=== PATIENT | female | born 1970 | race Caucasian/White ===

== ENCOUNTER → 2019-01-18 | Day surgery (SDC) | payer OTHER ==
[2019-01-13 14:32] LABS: BASOPHILS # (AUTO) 0.1 (0.0-0.1); BASOPHILS % 0.6 % (0.0-1.0); EOSINOPHILS # (AUTO) 0.3 (0.0-0.4); EOSINOPHILS % 1.6 % (0.0-6.0); HEMATOCRIT 47.4 % (34.2-44.1); LYMPHOCYTES # (AUTO) 3.3 (1.0-3.2); LYMPHOCYTES % 21.5 % (18.0-39.1); MEAN CORPUSCULAR HEMOGLOBIN 29.5 pg (28-32); MEAN CORPUSCULAR HGB CONC 33.8 g/dL (31-35); MEAN CORPUSCULAR VOLUME 87.5 fL (81-99); MONOCYTES # (AUTO) 0.8 (0.2-0.8); MONOCYTES % 5.1 % (4.4-11.3); NEUTROPHILS # (AUTO) 10.7 (2.1-6.9); NEUTROPHILS % 70.7 % (38.7-80.0); PLATELET COUNT 264 x10e3/uL (140-360); RED BLOOD COUNT 5.42 x10e6/uL (3.6-5.1); RED CELL DISTRIBUTION WIDTH 13.3 % (11.7-14.4)
[2019-01-13 14:51] LABS: ALBUMIN 3.8 g/dL (3.5-5.0); ANION GAP 17.2 mmol/L (8-16); CALCIUM 10.6 mg/dL (8.4-10.2); CREATININE, SERUM 0.99 mg/dL (0.57-1.11); POTASSIUM 4.2 mmol/L (3.5-5.1)
--- NOTE | 2019-01-13 15:55 | NUR ---
Notified Dr. Sharee Costa of glucose [address] Sharee Costa stated to do finger stick on day of procedure.
[~2019-01-18] VITALS: Ht 165.1 cm; Wt 96.6 kg
[~2019-01-18] MED LIST: ASPIR 8181 MG PO; FENTANYL CITRATE/PF 100MCG/2 ML INJ ONE; HEPARIN SOD (PORCINE) 1000 UNIT/ML 30ML ONE; HEPARIN SOD/SOD CHLORIDE 2,000 ML ONE; IOPAMIDOL 370 MG/ML 200 ML INFUS..BTL INJ ONE; LIDOCAINE HCL 2% LOCAL 20 ML VIAL ONE; LISINOPRIL10 MG PO; MIDAZOLAM HCL 2 MG/2 ML VIAL ONE; NITROGLYCERIN/D5W 200 MCG/ML 250 ML ONE; SODIUM CHLORIDE 0.9% 1000ML 1,000 ML ONE; VERAPAMIL HCL 2.5 MG/ML 2 ML VIAL ONE
--- OUTSIDE RECORDS SUMMARY | 2019-01-18 11:05 | XMS REPORT | Summary of Care ---
Author Author [facility] Address Unknown Phone Unavailable Encounter HQ Encntr_alias(FIN) [id number] Date(s): 10/01/17 - 10/01/17 Urgent [facility] [address] [place] [address] [phone] Discharge Disposition: Home or Self Care Attending Physician: Ayanna Medrano MD Vital Signs No data available for this section Problem List No data available for this section Allergies, Adverse Reactions, Alerts Substance Reaction Severity Status sulfa drugs Active Medications No data available for this section Results No data available for this section Immunizations No data available for this section Procedures No data available for this section Social History Social History Type Response Assessment and Plan No data available for this section
--- OUTSIDE RECORDS SUMMARY | 2019-01-18 11:05 | XMS REPORT ---
Author Author [facility] Address Unknown Phone Unavailable Care Team Providers Care Orthopedic Cast Specialist Name Role Phone Unavailable Unavailable Payers Payer Name Policy Type Policy Number Effective Date Expiration Date Problems This patient has no known problems. Allergies, Adverse Reactions, Alerts Allergy Name Allergy Type Status Severity Reaction(s) Onset Date Inactive Date Treating Clinician Comments Sulfa (Sulfonamide Antibiotics) DA Active SD 2018-11-08 00:00:00 ciprofloxacin DA Active 2018-11-08 00:00:00 Sulfa (Sulfonamide Antibiotics) DA Active SD 2018-02-07 00:00:00 ciprofloxacin DA Active 2018-02-07 00:00:00 Medications This patient has no known medications. Results Test Description Test Time Test Comments Text Results Atomic Results Result Comments - CT ANGIO CHEST 2018-11-17 16:46:00 Name: PASHA MCKEON [facility] : 1970 Age/S: 48 / F [address] [place] [address] Blvd Unit #: [id number] Loc: [place] [address] Phys: Víctor Cortés MD Acct: [id number] Dis Date: Status: REG ER PHONE #: [phone] Exam Date: 11/17/2018 1624 FAX #: [phone] Reason: CHEST PAIN RADIATING TO BACK; EVAL FOR PE/AORTA EXAMS: CPT CODE: [id number] CT ANGIO CHEST [address] ANGIOGRAM WITH IV CONTRAST (PE PROTOCOL) AND 3D RECONSTRUCTIONS 11/17/2018 AT 1622 HOURS. MEDICAL HISTORY: Chest pain radiating to the back. Pulmonary embolism? Aortic dissection?. COMPARISON STUDIES: Chest one view from earlier the same day at 1237 hours.. ADMINISTERED CONTRAST: 100 mL of Isovue-300 intravenously. DLP: 389.83 mGy-cm FINDINGS: Contiguous 2.5 mm axial images of the chest were obtained with IV contrast using the CT angiogram protocol for pulmonary embolism. Images were obtained from the thoracic inlet to the level of the adrenal glands. The acquired data was postprocessed to create coronal reformatted images and 3D volume rendering and MIP reconstructions with the use of the workstation. No central or segmental pulmonary emboli are demonstrated and there are no s igns of thoracic aortic aneurysm or dissection. There are no signs of intracardiac thrombus, ventricular hypertrophy or aneurysm. No pericardial thickening or effusion. No adenopathy. Mild centrilobular and subpleural emphysema with no edema or consolidation accounting for limited inspiration. No pleural effusion or pneumothorax. No acute upper abdominal findings are seen along the visualized segments. Prior vertical sleeve gastroplasty and cholecystectomy without biliary dilatation. Incidental 1.8 cm hypodense left adrenal nodule (mean attenuation: 13 HU). Severe thoracic spondylosis without destructive bone lesion. IMPRESSION: 1. No central or segmental pulmonary emboli, thoracic aortic aneurysm or dissection. 2. Mild emphysema with no edema or consolidation accounting for limited inspiration. 3. No acute upper abdominal findings. 4. Cholecystectomy and vertical sleeve gastrop lasty. 5. Hypodense left adrenal nodule. Suspect adenoma. ____ CT imaging performed at this location utilizes radiation dose optimization techniques which include one or more of the following: - Automated exposure control -Adjustment of the mA and/or kV according to patient size PAGE 1 Signed Report (CONTINUED) Name: PASHA MCKEON [facility] : 1970 Age/S: 48 / F [address] [place] [address] Unit #: [id number] Loc: [place] [address] Phys: Víctor Cortés MD Acct: [id number] Dis Date: Status: REG ER PHONE #: [phone] Exam Date: 11/17/2018 1624 FAX #: [phone] Reason: CHEST PAIN RADIATING TO BACK; EVAL FOR PE/AORTA EXAMS: CPT CODE: [id number] CT ANGIO CHEST [address] <Continued> -Use of iterative reconstruction technique SL: ER-H at 1646 Reported and signed by: Rigo Burgess M.D. CC: Astrid Macedo MD; Víctor Cortés MD Technologist:Alia Ott RT(R)(CT) CTDI: DLP: Trnscb Date/Time: 11/17/2018 (164) [email or web address] Orig Print D/T: S: 11/17/2018 (3635) PAGE 2 Signed Report B-TYPE NATRIURETIC PEPTIDE 2018-11-17 14:47:00 B-TYPE NATRIURETIC PEPTIDE (test code=BNP) 5.5 PG/ML 0-100 URINALYSIS [id number] 14:07:00* Test Item Value Reference Range Comments UA COLOR (test code=COLU) STRAW YEL/STRAW UA APPEARANCE (test code=APPU) CLEAR CLEAR UA GLUCOSE DIPSTICK (test code=DGLUU) 3+ NEGATIVE UA BILIRUBIN DIPSTICK (test code=BILU) NEGATIVE NEGATIVE UA KETONE DIPSTICK (test code=KETU) NEGATIVE NEGATIVE UA SPECIFIC GRAVITY (test code=SGU) 1.031 1.005-1.030 UA BLOOD DIPSTICK (test code=MAY) NEGATIVE NEGATIVE UA PH DIPSTICK (test code=LIA) 6.0 5.0-7.0 UA PROTEIN DIPSTICK (test code=PROU) NEGATIVE NEGATIVE UA UROBILINIOGEN DIPSTICK (test code=URO) 0.2 mg/dL 0.2-1.0 UA NITRITE DIPSTICK (test code=WENDY) NEGATIVE NEGATIVE UA LEUKOCYTE ESTERASE DIPSTICK (test code=LEUU) NEGATIVE NEGATIVE UA WBC (test code=WBCU) 0-3 WBC/HPF 0-3 UA RBC (test code=RBCU) 0-3 RBC/HPF 0-3 UA BACTERIA (test code=BACU) NONE SEEN /HPF NONE SEEN UA SQUAMOUS CELLS (test code=SQU) 0-5 /HPF NONE SEEN UA MUCUS (test code=MUCU) TRACE /LPF NONE SEEN BASIC METABOLIC [id number] 14:06:00* Test Item Value Reference Range Comments SODIUM (test code=NA) 135 mEq/L 134-147 POTASSIUM (test code=K) 3.9 mEq/L 3.4-5.0 CHLORIDE (test code=CL) 102 mEq/L 100-108 CARBON DIOXIDE (test code=CO2) 27 mEq/L 21-33 ANION GAP (test code=GAP) 10 0-20 GLUCOSE (test code=GLU) 447 mg/dL 70-110 BLOOD UREA NITROGEN (test code=BUN) 7 mg/dL 7-18 GLOMERULAR FILTRATION RATE (test code=GFR) 88.9 95-105 Units of measure=ml/min/1.73 m2 CREATININE (test code=CREAT) 0.7 mg/dL 0.6-1.3 CALCIUM (test code=CA) 8.6 mg/dL 8.0-10.5 HEPATIC FUNCTION [id number] 14:06:00* Test Item Value Reference Range Comments TOTAL PROTEIN (test code=PROT) 7.1 g/dL 6.4-8.2 ALBUMIN (test code=ALB) 3.30 g/dL 3.4-5.0 BILIRUBIN TOTAL (test code=BILT) 0.40 mg/dL 0.0-1.0 BILIRUBIN DIRECT (test code=BILD) 0.10 MG/DL 0.0-0.30 BILIRUBIN INDIRECT (test code=BILIND) 0.30 MG/DL SGOT/AST (test code=AST) 25 IUnit/L 15-37 SGPT/ALT (test code=ALT) 37 IUnit/L 15-65 ALKALINE PHOSPHATASE TOTAL (test code=ALKP) 150 IUnit/L 20-125 [id number] 14:06:00* Test Item Value Reference Range Comments LIPASE (test code=LIP) 246 IUnit/L 73-393 [id number] 14:06:00* Test Item Value Reference Range Comments MAGNESIUM (test code=MAG) 1.80 mg/dL 1.8-2.4 [id number] 14:06:00* Test Item Value Reference Range Comments TROPONIN-I (test code=TROPI) < 0.015 ng/mL 0.000-0.045 Negative: <=0.045 Positive: >=0.046 Correlation with serial results, other cardiac markers andclinical findings is necessary to determine the clinicalsignificance of this result. Results using different methodologies should not be comparedto one another as quantitative results may vary by method. [id number] 13:58:00* Test Item Value Reference Range Comments D-DIMER (test code=DDIMER) < 215 ng/mlFEU <=500 THROMBOSIS AND/OR PULMONARY EMBOLISM AND THE CLINICAL CUT- OFF VALUE FOR EXCLUSION (500 ng/mL FEU) OF THESE CONDITIONSIS VALIDATED BY THE PEANUT GRADER OF THE METHOD. A NEGATIVE D-DIMER RESULT WHEN COMBINED WITH A CLINICALASSESSMENT OF LOW PRETEST PROBABILITY HAS BEEN SHOWN TO HAVEA HIGH NEGATIVE PREDICTIVE VALUE OF DVT OR PE. D-DIMER VALUES >500 ng/mL FEU ARE NOT DIAGNOSTIC FOR DVT, PEor DIC WITHOUT OTHER CONFIRMATORY TESTS AND APPROPRIATECLINICAL EUALUATIONS. CBC W/AUTO [id number] 13:48:00* Test Item Value Reference Range Comments WHITE BLOOD CELL (test code=WBC) 10.06 x10 3/uL 4.5-11.0 RED BLOOD CELL (test code=RBC) 4.85 x10 6/uL 3.54-5.02 HEMOGLOBIN (test code=HGB) 14.4 g/dL 11.0-15.0 HEMATOCRIT (test code=HCT) 42.9 % 33.0-45.0 MEAN CELL VOLUME (test code=MCV) 88.5 fL 81.0-99.0 MEAN CELL HGB (test code=MCH) 29.7 pg 27.0-33.0 MEAN CELL HGB CONCETRATION (test code=MCHC) 33.6 g/dL 33.0-37.0 RED CELL DISTRIBUTION WIDTH CV (test code=RDW) 13.9 % 11.5-14.5 RED CELL DISTRIBUTION WIDTH SD (test code=RDW-SD) 44.8 fL 37.0-54.0 PLATELET COUNT (test code=PLT) 212 x10 3/uL 150-400 MEAN PLATELET VOLUME (test code=MPV) 11.1 fL 7.0-9.0 NEUTROPHIL % (test code=NT%) 64.0 % 56.0-77.0 IMMATURE GRANULOCYTE % (test code=IG%) 0.4 % 0.0-2.0 LYMPHOCYTE % (test code=LY%) 28.3 % 14.0-32.0 MONOCYTE % (test code=MO%) 5.0 % 4.8-9.0 EOSINOPHIL % (test code=EO%) 1.9 % 0.3-3.7 BASOPHIL % (test code=BA%) 0.4 % 0.0-2.0 NUCLEATED RBC % (test code=NRBC%) 0.0 % 0-0 NEUTROPHIL # (test code=NT#) 6.44 x10 3/uL 2.0-7.6 IMMATURE GRANULOCYTE # (test code=IG#) 0.04 x10 3/uL 0.00-0.03 LYMPHOCYTE # (test code=LY#) 2.85 x10 3/uL 1.0-3.8 MONOCYTE # (test code=MO#) 0.50 x10 3/uL 0.1-0.8 EOSINOPHIL # (test code=EO#) 0.19 x10 3/uL 0.0-0.2 BASOPHIL # (test code=BA#) 0.04 x10 3/uL 0.0-0.2 NUCLEATED RBC # (test code=NRBC#) 0.00 x10 3/uL 0.0-0.1 MANUAL DIFF REQUIRED (test code=MDIFF) NO - XR CHEST 1 [id number] 12:46:00 FAX: Astrid Mann [phone] [place]: St: REG FAX: Víctor Cortés MD [phone] Name: PASHA MCKEON [facility] : 1970 Age/S: 48/F [address] [place] [address] Unit #: [id number] Loc: [place] [address] Phys: Víctor Cortés MD Acct: [id number] Dis Date: Status: REG ER PHONE #: [phone] Exam Date: 11/17/2018 1244 FAX #: [phone] Reason: Chest Pain EXAMS: CPT CODE: [id number] XR CHEST 1 V 71285 CHEST, ONE VIEW: HISTORY: Acute chest pain. COMPARISON EXAM(S): Back to January 2015 FINDINGS: This single portable view was obtained at 1237 hours on 11/17/2018 and shows the cardiac silhouette to be upper normal and the lungs clear. No pleural fluid or evidence of pneumothorax. The skeletal structures are unremarkable. IMPRESSION: 1. No acute changes. 2. Stable appearance of the chest compared to 11/08/2018. SL:01 at 8336 Reported and signed by: Bj Bhatti M.D. CC: Astrid Macedo MD; Víctor Cortés MD Technologist: RT Ute(R) Trnscrd Date/Time/By: 11/17/2018 (4555) : By: [email or web address] Orig Print D/T: S: 11/17/2018 (9670) PAGE 1 Signed Report [id number] 06:49:00* Test Item Value Reference Range Comments GLUBED (test code=GLUBED) 351 MG/DL 70-110 Performed by certified automatic fancy machine operator at [facility] ACETONE [id number] 06:05:00* Test Item Value Reference Range Comments ACETONE QUANT (test code=ACETN) NEGATIVE - <20mg/dL mg/dL NEG - <20 DRUGS OF ABUSE SCREEN [id number] 05:05:00* Test Item Value Reference Range Comments URN COCAINE (test code=COCAURN) NEGATIVE NEGATIVE URN CANNABINOIDS (test code=CANNABURN) NEGATIVE NEGATIVE URN AMPHETAMINE (test code=AMPHETURN) NEGATIVE NEGATIVE URN BARBITURATE (test code=BARBITURN) NEGATIVE NEGATIVE URN BENZODIAZEPINE (test code=BENZOURN) NEGATIVE NEGATIVE Cut-off value:200 ng/mL URN OPIATES (test code=OPIATURN) NEGATIVE NEGATIVE Cut-off value:2000 ng/mL URN PHENCYCLIDINE (PCP) (test code=PHENCURN) NEGATIVE NEGATIVE Cutoffs:Barbiturates 200 ng/mLBenzodiazepines 200 ng/mLTHC Cannabinoids 50 ng/mLOpiates(Morphine) 2000 ng/mLAmphetamine 1000 ng/mLCocaine 300 ng/mLPCP phencyclidine 25 ng/mL Unconfirmed screening results shouldnot be used for non-medical purposes. B-TYPE NATRIURETIC [id number] 04:46:00* Test Item Value Reference Range Comments B-TYPE NATRIURETIC PEPTIDE (test code=BNP) 9.3 PG/ML 0-100 - XR CHEST 1 [id number] 04:41:00 FAX: Astrid Mann [phone] [place]: St: REG FAX: Vita Ring NP [phone] Name: PASHA MCKEON [facility] : 1970 Age/S: 48/F [address] [place] [address] Unit #: [id number] Loc: [place] [address] Phys: Vita Ring NP Acct: [id number] Dis Date: Status: REG ER PHONE #: [phone] Exam Date: 11/08/2018 0426 FAX #: [phone] Reason: Chest Pain EXAMS: CPT CODE: [id number] XR CHEST 1 V 54463 EXAM: CR, XR chest one view: 11/08/2018, 0418 hours HISTORY: Chest Pain TECHNIQUE: 1 view of the chest. COMPARISON: 11/25/2017 FINDINGS: Trachea is midline. Heart is normal in size. Pulmonary vascularity is unremarkable. There is no airspace consolidation, pleural effusion or pneumothorax. A small nodular opacity in the left lower lobe, probably calcified granuloma. Mild subsegmental atelectasis left lung base Osseous structures are stable. IMPRESSION: Mild subsegmental atelectasis left lung base. SL: [JSYED-H] at 0441 Reported and signed by: Chris Kirkland M.D. CC: Astrid Macedo MD; Vita Ring NP Technologist: RT Crissy(R) Trnscrd Date/Time/By: 11/08/2018 (044) : By: [email or web address] Orig Print D/T: S: 11/08/2018 (0444) PAGE 1 Signed Report PROTHROMBIN [id number] 04:40:00* Test Item Value Reference Range Comments PROTHROMBIN TIME PATIENT (test code=PTP) 9.6 SECONDS 9.3-12.9 INTERNATIONAL NORMAL RATIO (test code=INR) 0.9 0.8-1.2 TARGET INR BY INDICATION Indication INR1. Prophylaxis of venous thrombosis 2.0 - 3.0 (orthopedic surgery), Prophylaxis of venous thrombosis (other than high-risk surgery), Treatment of Deep Vein Thrombosis/Pulmonary Embolism, Prevention of systemic embolism - Tissue heart valves, Acute Myocardial Infarction (to prevent systemic embolism), Valvular heart disease, Atrial Fibrillation, Bileaflet mechanical valve in aortic position.2. Mechanical prosthetic valves (high risk), 2.5 - 3.5 Presence of Lupus Anticoagulant or Antiphospholipid Antibodies, Prevention of systemic embolism - Acute Myocardial Infarction (to prevent recurrent infarct). THROMBOPLASTIN TIME [id number] 04:40:00* Test Item Value Reference Range Comments THROMBOPLASTIN TIME PARTIAL (test code=PTT) 29.5 Seconds 25.0-39.5 Therapeutic Range: 50.4 - 88.3 Seconds Effective 10/18/2018 [id number] 04:40:00* Test Item Value Reference Range Comments D-DIMER (test code=DDIMER) 331 ng/mlFEU <=500 THROMBOSIS AND/OR PULMONARY EMBOLISM AND THE CLINICAL CUT- OFF VALUE FOR EXCLUSION (500 ng/mL FEU) OF THESE CONDITIONSIS VALIDATED BY THE PEANUT GRADER OF THE METHOD. A NEGATIVE D-DIMER RESULT WHEN COMBINED WITH A CLINICALASSESSMENT OF LOW PRETEST PROBABILITY HAS BEEN SHOWN TO HAVEA HIGH NEGATIVE PREDICTIVE VALUE OF DVT OR PE. D-DIMER VALUES >500 ng/mL FEU ARE NOT DIAGNOSTIC FOR DVT, PEor DIC WITHOUT OTHER CONFIRMATORY TESTS AND APPROPRIATECLINICAL EUALUATIONS. BASIC METABOLIC [id number] 04:38:00* Test Item Value Reference Range Comments SODIUM (test code=NA) 132 mEq/L 134-147 POTASSIUM (test code=K) 4.1 mEq/L 3.4-5.0 CHLORIDE (test code=CL) 100 mEq/L 100-108 CARBON DIOXIDE (test code=CO2) 23 mEq/L 21-33 ANION GAP (test code=GAP) 13 0-20 GLUCOSE (test code=GLU) 568 mg/dL 70-110 BLOOD UREA NITROGEN (test code=BUN) 11 mg/dL 7-18 GLOMERULAR FILTRATION RATE (test code=GFR) 88.9 95-105 Units of measure=ml/min/1.73 m2 CREATININE (test code=CREAT) 0.7 mg/dL 0.6-1.3 CALCIUM (test code=CA) 8.7 mg/dL 8.0-10.5 HEPATIC FUNCTION [id number] 04:38:00* Test Item Value Reference Range Comments TOTAL PROTEIN (test code=PROT) 6.9 g/dL 6.4-8.2 ALBUMIN (test code=ALB) 3.10 g/dL 3.4-5.0 BILIRUBIN TOTAL (test code=BILT) 0.40 mg/dL 0.0-1.0 BILIRUBIN DIRECT (test code=BILD) < 0.10 MG/DL 0.0-0.30 BILIRUBIN INDIRECT (test code=BILIND) 0.30 MG/DL SGOT/AST (test code=AST) 36 IUnit/L 15-37 SGPT/ALT (test code=ALT) 49 IUnit/L 15-65 ALKALINE PHOSPHATASE TOTAL (test code=ALKP) 168 IUnit/L 20-125 [id number] 04:38:00* Test Item Value Reference Range Comments LIPASE (test code=LIP) 283 IUnit/L 73-393 BASIC METABOLIC [id number] 04:33:00* Test Item Value Reference Range Comments SODIUM (test code=NA) 132 mEq/L 134-147 POTASSIUM (test code=K) 4.1 mEq/L 3.4-5.0 CHLORIDE (test code=CL) 100 mEq/L 100-108 CARBON DIOXIDE (test code=CO2) 23 mEq/L 21-33 ANION GAP (test code=GAP) 13 0-20 GLUCOSE (test code=GLU) mg/dL 70-110 BLOOD UREA NITROGEN (test code=BUN) 11 mg/dL 7-18 GLOMERULAR FILTRATION RATE (test code=GFR) 88.9 95-105 Units of measure=ml/min/1.73 m2 CREATININE (test code=CREAT) 0.7 mg/dL 0.6-1.3 CALCIUM (test code=CA) 8.7 mg/dL 8.0-10.5 HEPATIC FUNCTION [id number] 04:33:00* Test Item Value Reference Range Comments TOTAL PROTEIN (test code=PROT) 6.9 g/dL 6.4-8.2 ALBUMIN (test code=ALB) 3.10 g/dL 3.4-5.0 BILIRUBIN TOTAL (test code=BILT) 0.40 mg/dL 0.0-1.0 BILIRUBIN DIRECT (test code=BILD) < 0.10 MG/DL 0.0-0.30 BILIRUBIN INDIRECT (test code=BILIND) 0.30 MG/DL SGOT/AST (test code=AST) 36 IUnit/L 15-37 SGPT/ALT (test code=ALT) 49 IUnit/L 15-65 ALKALINE PHOSPHATASE TOTAL (test code=ALKP) 168 IUnit/L 20-125 [id number] 04:33:00* Test Item Value Reference Range Comments LIPASE (test code=LIP) 283 IUnit/L 73-393 TROPONIN-I [id number] 04:24:00* Test Item Value Reference Range Comments TROPONIN-I RAPID (test code=TROPIRAP) 0.00 ng/mL 0.00-0.08 Performed by certified automatic fancy machine operator at [facility] Negative: <=0.08 Positive: >=0.09An elevated troponin value alone is not sufficient todiagnose a myocardial infarction. Rather, the patient sclinical presentation (history, physical exam) and ECGshould be used in conjunction with troponin in thediagnostic evaluation of suspected myocardial infarction. Aserial sampling protocol is recommended to facilitate the identification of temporal changes in troponin levels characteristic of SD. CBC W/AUTO [id number] 04:17:00* Test Item Value Reference Range Comments WHITE BLOOD CELL (test code=WBC) 12.48 x10 3/uL 4.5-11.0 RED BLOOD CELL (test code=RBC) 4.75 x10 6/uL 3.54-5.02 HEMOGLOBIN (test code=HGB) 14.1 g/dL 11.0-15.0 HEMATOCRIT (test code=HCT) 41.7 % 33.0-45.0 MEAN CELL VOLUME (test code=MCV) 87.8 fL 81.0-99.0 MEAN CELL HGB (test code=MCH) 29.7 pg 27.0-33.0 MEAN CELL HGB CONCETRATION (test code=MCHC) 33.8 g/dL 33.0-37.0 RED CELL DISTRIBUTION WIDTH CV (test code=RDW) 13.8 % 11.5-14.5 RED CELL DISTRIBUTION WIDTH SD (test code=RDW-SD) 44.5 fL 37.0-54.0 PLATELET COUNT (test code=PLT) 222 x10 3/uL 150-400 MEAN PLATELET VOLUME (test code=MPV) 11.5 fL 7.0-9.0 NEUTROPHIL % (test code=NT%) 59.9 % 56.0-77.0 IMMATURE GRANULOCYTE % (test code=IG%) 0.5 % 0.0-2.0 LYMPHOCYTE % (test code=LY%) 31.7 % 14.0-32.0 MONOCYTE % (test code=MO%) 5.8 % 4.8-9.0 EOSINOPHIL % (test code=EO%) 1.5 % 0.3-3.7 BASOPHIL % (test code=BA%) 0.6 % 0.0-2.0 NUCLEATED RBC % (test code=NRBC%) 0.0 % 0-0 NEUTROPHIL # (test code=NT#) 7.47 x10 3/uL 2.0-7.6 IMMATURE GRANULOCYTE # (test code=IG#) 0.06 x10 3/uL 0.00-0.03 LYMPHOCYTE # (test code=LY#) 3.96 x10 3/uL 1.0-3.8 MONOCYTE # (test code=MO#) 0.73 x10 3/uL 0.1-0.8 EOSINOPHIL # (test code=EO#) 0.19 x10 3/uL 0.0-0.2 BASOPHIL # (test code=BA#) 0.07 x10 3/uL 0.0-0.2 NUCLEATED RBC # (test code=NRBC#) 0.00 x10 3/uL 0.0-0.1 MANUAL DIFF REQUIRED (test code=MDIFF) NO
--- OUTSIDE RECORDS SUMMARY | 2019-01-18 11:05 | XMS REPORT | Continuity of Care Document ---
Author Author [facility] Address Unknown Phone Unavailable Care Team Providers Care Restoration Officer Name Role Phone Gyft Unavailable Unavailable Problems No Data Provided for This Section Medications No Data Provided for This Section Allergies, Adverse Reactions, Alerts Substance Category Reaction Severity Reaction type Status Date Reported Comments Source sulfa drugs Assertion Drug allergy [facility] Immunizations No Data Provided for This Section Results No Data Provided for This Section Pathology Reports No Data Provided for This Section Diagnostic Reports No Data Provided for This Section Consultation Notes No Data Provided for This Section Discharge Summaries No Data Provided for This Section History and Physicals No Data Provided for This Section Vital Signs No Data Provided for This Section Encounters Location Location Details Encounter Type Encounter Number Reason For Visit Attending Provider ADM Date DC Date Status Source Outpatient [id number] AYANNA BAR 10/01/2017 Active [facility]ulatory Pre-Reg [id number] Ayanna Bar 10/01/2017 10/02/2017 Medical Group Procedures No Data Provided for This Section Assessment and Plan No Data Provided for This Section Plan of Care No Data Provided for This Section Social History Social History Date Source Social History TypeResponse 10/02/2017 Medical Group Family History No Data Provided for This Section Advance Directives No Data Provided for This Section Functional Status No Data Provided for This Section
[2019-01-18 16:49] VITALS: BP 140/69
--- NOTE | 2019-01-18 16:49 | NUR ---
0161 Bedside report received from Sigifredo MORFIN. Alert oriented and appropriate, PERRLA, respirations even and unlabored to room air. Pulses x4 extremities equal and strong. Pedal pulses PT/DP x4. Cap fill brisk < 3 sec. Skin warm and dry integrity appears D/I. IV 20g to left hand, presents healthy w/o s/s of infiltration or complaint. Abdomen soft and supple. pt offered toileting, denies need to urinate or defecate. No personal affects with patient. Family mother Barb . Pt and family verbalizes understanding of POC. Discussed dc papers did enclose Diabetic teaching tool and discussed importance to f/o PCP with diabetic teaching and potential gluco-monitoring aids for home care instruction. Currently w/o complaint of pain or need. Tr band removal started at 1745pm and ended at 830 With stasis and normal neuro- vascular function. Sterile 2x2 and Coban dressing with arm splint in place. ds/rn
[2019-01-18 17:00] VITALS: BP 147/72
[2019-01-18 17:15] VITALS: BP 155/71
[2019-01-18 17:30] VITALS: BP 150/72
[2019-01-18 17:45] VITALS: BP 144/77
[2019-01-18 18:30] VITALS: BP 150/70
--- NOTE | 2019-01-18 18:30 | NUR ---
1830 meets DC criteria. assessed for s/s of complication and presence of hematoma. Rt TR band site.warm, dry, no discolor, and pulses present. IV removed from left forearm. Distal tip appears intact. VS WNL. Pt denies pain, sob, or need at this time. Family at Barb Mother. Review of discharge paperwork and follow up instructions. verbalized understanding. Pt to wheelchair and transported to front of hospital. Transferred to private vehicle under own strength w/o incident with DC paperwork in hand. - ds/rn
--- NOTE | 2019-01-18 19:32 | Operative Report ---
DATE OF PROCEDURE: 01/18/2019 SURGEON: Say Costa MD CARDIAC CATHETERIZATION REPORT INDICATION FOR PROCEDURE: Chest pain. PREPROCEDURE ASSESSMENT: The patient's medical history, social history, and prior history and physical was reviewed prior to the procedure. The patient was deemed to be an appropriate candidate for moderate sedation. Informed consent was obtained and documented in the medical records prior to the procedure. MEDICATIONS: Please see nursing notes for medications administered during the procedure. PROCEDURES PERFORMED: 1. Coronary angiography via right radial approach. 2. Left heart catheterization. PROCEDURE DETAILS: The patient was brought to the cardiac catheterization laboratory in a fasting state. Right wrist was prepped and draped in a sterile fashion. A 6-Filipino Slender sheath was inserted in the right radial artery using modified Seldinger technique. Coronary angiography was performed using Perla radial catheter to engage the RCA and XB 3.0, 6-Filipino guide to engage the left coronary artery. Multiple orthogonal views were taken of each coronary artery. Left heart catheterization was performed using Perla radial catheter. All catheters were exchanged over a wire. Access site was closed using a TR band device. The case ended without any immediate complications. SIGNIFICANT FINDINGS: 1. Left main coronary artery. No significant disease. 2. LAD. Large vessel goes to the apex one large diagonal branch. No significant disease. 3. Left circumflex. Large dominant left circumflex artery is of PDA and posterolateral branches distally. One large OM branch. No significant disease. 4. RCA. Small nondominant RCA. 5. Left heart catheterization. LV pressure 115. LVEDP 7. No gradient across the aortic valve on pullback. ESTIMATED BLOOD LOSS: 20 mL. GRAFTS AND IMPLANTS: None. SPECIMENS REMOVED: None. COMPLICATIONS: None. FINAL RECOMMENDATIONS: 1. Continue optimal medical therapy and risk factor control. 2. Follow up in clinic 2 weeks post procedure. Say Costa MD KVP/MODL /[id number]
== END | disposition home or self-care (01) ==
LOC: CATH LAB 10:57
PROVIDERS: ATTEND Internal Medicine
DX: I20.8 Other forms of angina pectoris (principal); E11.9 Type 2 diabetes mellitus without complications; F17.200 Nicotine dependence, unspecified, uncomplicated; Z88.2 Allergy status to sulfonamides; Z01.812 Encounter for preprocedural laboratory examination; Z79.82 Long term (current) use of aspirin; Z68.35 Body mass index [BMI] 35.0-35.9, adult; Z82.49 Family history of ischemic heart disease and other diseases of the circulatory system
CPT/HCPCS: 36415 ×2; 80053; 82948; 85025; 93458; C1887; J1644; J2001; J2250; J3010; J7030; Q9967